=== PATIENT | female | born 1975 | race Hispanic/Latino ===

== ENCOUNTER 2021-07-22 13:29 | Emergency (ER) | payer OTHER ==
[~2021-07-22 13:29] MED LIST: Iopamidol 370 76% 100 ML VIAL ONE
[2021-07-22] MEDS ORDERED: Ondansetron PF 4 MG/2 ML Vial ONE (13:57)
[2021-07-22] MEDS ORDERED: Morphine 4 MG/ML VIAL ONE (13:57)
[2021-07-22 14:34] LABS: BHCG - Serum Negative (NEGATIVE); Pregs Control Background? CLEAR/WHITE (CLR/WHITE); Pregs Control Bar Appear? YES (CONTROL BAR)
== END 2021-07-22 16:22 | disposition home or self-care (01) ==
LOC: ERS 13:29
DX: S00.03XA Contusion of scalp, initial encounter (principal); M54.50 Low back pain, unspecified; M54.2 Cervicalgia; M25.551 Pain in right hip; V43.52XA Car driver injured in collision with other type car in traffic accident, initial encounter
CPT/HCPCS: 36415; 70450; 71260; 72125; 74177; 84703; 96374; 96375; J2270; J2405; Q9967